=== PATIENT | female | born 1980 | race Caucasian/White ===

== ENCOUNTER 2019-01-12 08:06 | Emergency (ER) | payer BC, OTHER ==
[2019-01-12 08:12] VITALS: O2SAT 100
[2019-01-12] MEDS ORDERED: Dexamethasone 4 mg/1 ml IM STA (08:26)
[2019-01-12] MEDS ORDERED: Lidocaine 5% Patch TD STA ×2 (08:27→08:52)
[2019-01-12] MEDS ORDERED: Lidocaine 5% Patch TD ONE ×2 (08:40→08:53)
--- NOTE | 2019-01-12 09:01 | C.PDOC ---
History Of Present Illness 38 year old female with PMHx of sciatica and herniated disc presents to the ED complaining of low back pain for 3 weeks. Reports pain radiates down left leg. States she has been taking Alleve with transient relief. Reports prior episodes of similar pain in the past. Also states she was seen at the clinic one week ago and prescribed Mobic 15mg but she has not fill the prescription yet. Denies any recent trauma or falls, urinary or bowel incontinence, weakness or numbness. Time Seen by Provider: 01/12/19 08:14 Chief Complaint (Nursing): Back Pain History Per: Patient History/Exam Limitations: no limitations Onset/Duration Of Symptoms: Days Current Symptoms Are (Timing): Still Present Quality Of Discomfort: "Pain" Previous Symptoms: Back Pain Associated Symptoms: None Past Medical History Reviewed: Historical Data, Nursing Documentation, Vital Signs Vital Signs: Last Vital Signs Temp 98.9 F 01/12/19 08:09 Pulse 100 H 01/12/19 08:09 Resp 18 01/12/19 08:09 BP 138/86 01/12/19 08:09 Pulse Ox 100 01/12/19 08:09 Primary Care Provider: FAMILY PROVIDER,NO - Medical History PMH: Back Problems, Hypercholesterolemia Surgical History: Family History: States: No Known Family Hx - Social History Hx Tobacco Use: No Hx Alcohol Use: Yes Hx Substance Use: No - Immunization History Hx Tetanus Toxoid Vaccination: No Hx Influenza Vaccination: No Hx Pneumococcal Vaccination: No Review Of Systems Genitourinary: Negative for: Incontinence Musculoskeletal: Positive for: Back Pain Neurological: Negative for: Weakness, Numbness Physical Exam - Physical Exam Appears: Non-toxic, No Acute Distress Skin: Warm, Dry, No Rash Head: Normacephalic Eye(s): bilateral: Normal Inspection Nose: Normal Oral Mucosa: Moist Neck: Supple Chest: Symmetrical Cardiovascular: Rhythm Regular Respiratory: Normal Breath Sounds, No Rales, No Rhonchi, No Wheezing Gastrointestinal/Abdominal: Soft, No Tenderness Back: No CVA Tenderness, Other (Minimal paralumbar tenderness ) Neurological/Psych: Oriented x3, Normal Speech Gait: Steady ED Course And Treatment O2 Sat by Pulse Oximetry: 100 (RA) Pulse Ox Interpretation: Normal Medical Decision Making Medical Decision Making: Plan - Decadron 8mg IM - Lidoderm 1ea TD On re-eval, patient reports pain is improving. Asks for work note. Rx given Disposition Counseled Patient/Family Regarding: Diagnosis, Need For Followup, Rx Given - Disposition Disposition: HOME/ ROUTINE Disposition Time: 09:18 Condition: GOOD Additional Instructions: Take Tylenol extra strength Fill your prescription for Mobic, which can still be taken with Tylenol or muscle relaxant Take Flexeril as needed for back pain, may cause drowsiness Follow up with your primary doctor Prescriptions: Cyclobenzaprine [Cyclobenzaprine HCl] 10 mg PO TID #30 tab Instructions: Sciatica (DC) Forms: [employer] (Macedonian), Work Excuse - POA Present On Arrival: None - Clinical Impression Clinical Impression: Sciatica - 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 - Scribe Statement The provider has reviewed the documentation as recorded by the Scribe Fauzia Martines All medical record entries made by the Scribe were at my direction and personally dictated by me. I have reviewed the chart and agree that the record accurately reflects my personal performance of the history, physical exam, medical decision making, and the department course for this patient. I have also personally directed, reviewed, and agree with the discharge instructions and disposition.
[2019-01-12 09:37] VITALS: BP 122/76; PULSE 86; RESP 20; TEMP 98.4
== END 2019-01-12 09:30 | disposition home or self-care (01) ==
LOC: C.ER 08:06
DX: M54.30 Sciatica, unspecified side (principal)
CPT/HCPCS: 96372; 99284; J1100